=== PATIENT | male | born 1950 | race Caucasian/White ===

== ENCOUNTER → 2022-09-30 | Day surgery (SDC) | payer MEDICARE ==
[~2022-09-30] MED LIST: AMLODIPINE BES2.5 MG PO; CALCIUM; CARVEDILOL12.5 MG PO; CENTRUM ADULTS1 EACH PO; CRESTOR20 MG; CYCLOBENZAPRINE5 MG PO; DEXAMETHASONE SOD PHOS 10 MG/1 ML VIAL ONE; DEXAMETHASONE SOD PHOS INJ 4 MG/ML SDV ONE; FENTANYL CITRATE/PF 100MCG/2 ML INJ ONE; GLYCOPYRROLATE INJ 0.2 MG/ML VIAL ONE; LIDOCAINE HCL 2% LOCAL INJ 5 ML SDV VIAL INJ ONE; LISINOPRIL-HCT1 EACH PO; MIDAZOLAM HCL 2 MG/2 ML VIAL ONE; NEURONTIN300 MG PO; OMEGA 3 1,0001 EACH PO; ONDANSETRON HCL INJ 2MG/ML 2ML 2 MG/ML VIAL ONE; OXYMETAZOLINE HCL 0.05% NAS 1 SPRAY BTL ONE; POVIDONE IODINE 0.05% 0.05 % ML PO ONE; PROPOFOL IV EMULSION 10 MG/ML 20 ML VIAL ONE; PROTONIX20 MG PO; ROCURONIUM BROMIDE 10 MG/ML 5ML VIAL IV ONE; SEVOFLURANE INHAL SOLN 250 ML PEN BTL ONE; SUCRALFATE1 GM PO; ULTRAM50 MG PO; VITAMIN D330 ML PO
[2022-09-30 11:35] VITALS: BP 126/64
== END | disposition home or self-care (01) ==
LOC: OR 06:16
PROVIDERS: ATTEND Otolaryngology Otolaryngology/Facial Plastic Surgery
DX: K14.8 Other diseases of tongue (principal); I10 Essential (primary) hypertension; F17.220 Nicotine dependence, chewing tobacco, uncomplicated; Z88.6 Allergy status to analgesic agent; Z79.1 Long term (current) use of non-steroidal anti-inflammatories (NSAID); Z79.899 Other long term (current) drug therapy
CPT/HCPCS: 31536; 31622; 43191; 71046; 88304; 88305; 88342; 93005; J1100 ×2; J2001; J2250; J2405; J2704; J3010